=== PATIENT | female | born 2000 | race Caucasian/White ===

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

== ENCOUNTER → 2021-05-07 14:11 | Outpatient (BNVA) | payer MEDICAID, SELFPAY | PROVIDERS: Family Provider Nurse Practitioner; PCP Nurse Practitioner; Visit Provider Registered Nurse Neonatal Intensive Care | DX: J02.9 Acute pharyngitis, unspecified (principal); J40 Bronchitis, not specified as acute or chronic | CPT/HCPCS: 87880 ==

== ENCOUNTER → 2021-12-14 11:53 | Outpatient (BNVA) | payer MEDICAID, SELFPAY | PROVIDERS: Family Provider Nurse Practitioner; PCP Nurse Practitioner | DX: J02.9 Acute pharyngitis, unspecified (principal); R06.2 Wheezing; J01.90 Acute sinusitis, unspecified | CPT/HCPCS: 87071; 87880 ==

== ENCOUNTER → 2022-02-06 17:29 | Outpatient (BNVA) | payer MEDICAID, SELFPAY | PROVIDERS: Family Provider Nurse Practitioner; PCP Nurse Practitioner; Visit Provider Registered Nurse Neonatal Intensive Care | DX: Z32.00 Encounter for pregnancy test, result unknown (principal); H66.001 Acute suppurative otitis media without spontaneous rupture of ear drum, right ear | CPT/HCPCS: 81025 ==

== ENCOUNTER 2022-04-10 13:35 | Outpatient (CLI) | payer MEDICAID, SELFPAY ==
--- NOTE | 2022-04-10 14:30 | US_ITS ---
WS: [id number] ULTRASOUND BILATERAL BREAST HISTORY: Right-sided breast lumps. Mass the dynamic. COMPARISON: None available. TECHNIQUE: 2-D and Doppler. Ultrasound is directed all 4 quadrants of each breast. Also ultrasound directed to the palpable areas in the RIGHT breast near 6:00. There are no masses or soft tissue abnormality identified. No solid m ass or increased vascularity. No cysts. US/US breast BI limited* [id number] IMPRESSION: BI-RADS: 1-Negative FOLLOW-UP: See Report No ultrasound abnormality noted within either breast.
== END 2022-04-10 13:36 | disposition home or self-care (01) ==
LOC: RAD 13:35
PROVIDERS: PCP Nurse Practitioner; Visit Provider Nurse Practitioner
DX: N64.4 Mastodynia (principal)
CPT/HCPCS: 76642

== ENCOUNTER → 2023-08-19 15:16 | Outpatient (BNVA) | payer MEDICAID, SELFPAY | PROVIDERS: PCP Nurse Practitioner; Visit Provider Nurse Practitioner Women's Health | DX: Z32.00 Encounter for pregnancy test, result unknown (principal) | CPT/HCPCS: 81025 ==

== ENCOUNTER → 2023-09-08 12:23 | Outpatient (BNVA) | payer MEDICAID, SELFPAY | PROVIDERS: PCP Nurse Practitioner; Visit Provider Obstetrics & Gynecology | DX: Z34.91 Encounter for supervision of normal pregnancy, unspecified, first trimester (principal); Z3A.01 Less than 8 weeks gestation of pregnancy | CPT/HCPCS: 76801 ==

== ENCOUNTER → 2023-09-17 13:46 | Outpatient (BNVA) | payer MEDICAID, SELFPAY | PROVIDERS: PCP Nurse Practitioner; Visit Provider Nurse Practitioner Women's Health | DX: Z34.90 Encounter for supervision of normal pregnancy, unspecified, unspecified trimester (principal); Z3A.00 Weeks of gestation of pregnancy not specified | CPT/HCPCS: 80307; 81000; 84439; 84443; 84481; 85025; 86592; 86762; 86803; 86850; 86900; 87086; 87340; 87806 ==

== ENCOUNTER → 2023-09-22 09:50 | Outpatient (BNVA) | payer MEDICAID, SELFPAY | PROVIDERS: PCP Nurse Practitioner; Visit Provider Obstetrics & Gynecology | DX: Z34.01 Encounter for supervision of normal first pregnancy, first trimester (principal) | CPT/HCPCS: 81000 ==

== ENCOUNTER → 2023-10-06 13:30 | Outpatient (BNVA) | payer MEDICAID, SELFPAY | PROVIDERS: PCP Nurse Practitioner; Visit Provider Obstetrics & Gynecology | DX: Z34.01 Encounter for supervision of normal first pregnancy, first trimester (principal) | CPT/HCPCS: 81000; 88175 ==

== ENCOUNTER → 2023-11-08 08:02 | Outpatient (BNVA) | payer MEDICAID, SELFPAY | PROVIDERS: PCP Nurse Practitioner; Visit Provider Nurse Practitioner Women's Health | DX: Z34.01 Encounter for supervision of normal first pregnancy, first trimester (principal); Z3A.00 Weeks of gestation of pregnancy not specified | CPT/HCPCS: 81000; 82105 ==

== ENCOUNTER → 2023-12-07 09:08 | Outpatient (BNVA) | payer MEDICAID, SELFPAY | PROVIDERS: PCP Nurse Practitioner; Visit Provider Obstetrics & Gynecology | DX: Z34.92 Encounter for supervision of normal pregnancy, unspecified, second trimester (principal); Z3A.21 21 weeks gestation of pregnancy | CPT/HCPCS: 76805 ==

== ENCOUNTER → 2023-12-14 11:00 | Outpatient (BNVA) | payer MEDICAID, SELFPAY | PROVIDERS: PCP Nurse Practitioner; Visit Provider Obstetrics & Gynecology | DX: Z34.01 Encounter for supervision of normal first pregnancy, first trimester (principal); Z3A.00 Weeks of gestation of pregnancy not specified | CPT/HCPCS: 81000 ==

== ENCOUNTER → 2024-01-03 10:40 | Outpatient (BNVA) | payer MEDICAID, SELFPAY | PROVIDERS: PCP Nurse Practitioner; Visit Provider Obstetrics & Gynecology | DX: Z34.01 Encounter for supervision of normal first pregnancy, first trimester (principal); Z3A.00 Weeks of gestation of pregnancy not specified | CPT/HCPCS: 76816; 81000 ==

== ENCOUNTER → 2024-01-12 10:46 | Outpatient (BNVA) | payer MEDICAID, SELFPAY | PROVIDERS: PCP Nurse Practitioner; Visit Provider Nurse Practitioner Family | DX: J02.9 Acute pharyngitis, unspecified (principal); J06.9 Acute upper respiratory infection, unspecified | CPT/HCPCS: 87880 ==

== ENCOUNTER → 2024-01-31 11:00 | Outpatient (BNVA) | payer MEDICAID, SELFPAY | PROVIDERS: PCP Nurse Practitioner; Visit Provider Obstetrics & Gynecology | DX: Z34.01 Encounter for supervision of normal first pregnancy, first trimester (principal); Z3A.00 Weeks of gestation of pregnancy not specified | CPT/HCPCS: 81000; 82950 ==

== ENCOUNTER → 2024-02-14 07:37 | Outpatient (BNVA) | payer MEDICAID, SELFPAY | PROVIDERS: PCP Nurse Practitioner; Visit Provider Obstetrics & Gynecology | DX: Z34.01 Encounter for supervision of normal first pregnancy, first trimester (principal) | CPT/HCPCS: 81000 ==

== ENCOUNTER → 2024-02-24 12:20 | Outpatient (BNVA) | payer MEDICAID, SELFPAY | PROVIDERS: PCP Nurse Practitioner; Visit Provider Obstetrics & Gynecology | DX: Z34.93 Encounter for supervision of normal pregnancy, unspecified, third trimester (principal); Z3A.33 33 weeks gestation of pregnancy | CPT/HCPCS: 76816 ==

== ENCOUNTER → 2024-02-28 07:59 | Outpatient (BNVA) | payer MEDICAID, SELFPAY | PROVIDERS: PCP Nurse Practitioner; Visit Provider Obstetrics & Gynecology | DX: Z34.01 Encounter for supervision of normal first pregnancy, first trimester (principal); Z3A.00 Weeks of gestation of pregnancy not specified | CPT/HCPCS: 81000 ==

== ENCOUNTER → 2024-03-09 08:57 | Outpatient (BNVA) | payer MEDICAID, SELFPAY | PROVIDERS: PCP Nurse Practitioner; Visit Provider Nurse Practitioner Women's Health | DX: Z34.93 Encounter for supervision of normal pregnancy, unspecified, third trimester (principal); Z3A.35 35 weeks gestation of pregnancy | CPT/HCPCS: 85025 ==

== ENCOUNTER → 2024-03-21 13:09 | Outpatient (BNVA) | payer MEDICAID, SELFPAY | PROVIDERS: PCP Nurse Practitioner; Visit Provider Nurse Practitioner Women's Health | DX: Z34.01 Encounter for supervision of normal first pregnancy, first trimester (principal) | CPT/HCPCS: 76816; 81000; 87081 ==

== ENCOUNTER → 2024-03-29 08:01 | Outpatient (BNVA) | payer MEDICAID, SELFPAY | PROVIDERS: PCP Nurse Practitioner; Visit Provider Obstetrics & Gynecology | DX: Z34.01 Encounter for supervision of normal first pregnancy, first trimester (principal); Z3A.00 Weeks of gestation of pregnancy not specified | CPT/HCPCS: 81000 ==

== ENCOUNTER → 2024-04-12 08:20 | Outpatient (BNVA) | payer MEDICAID, SELFPAY | PROVIDERS: PCP Nurse Practitioner; Visit Provider Obstetrics & Gynecology | DX: Z34.90 Encounter for supervision of normal pregnancy, unspecified, unspecified trimester (principal); Z3A.00 Weeks of gestation of pregnancy not specified | CPT/HCPCS: 81000 ==

== ENCOUNTER → 2024-04-19 08:16 | Outpatient (BNVA) | payer MEDICAID, SELFPAY | PROVIDERS: PCP Nurse Practitioner; Visit Provider Obstetrics & Gynecology | DX: Z34.01 Encounter for supervision of normal first pregnancy, first trimester (principal) | CPT/HCPCS: 81000 ==

== ENCOUNTER 2024-04-25 21:12 | Inpatient (IN) | payer MEDICAID, SELFPAY ==
[2024-04-25] VITALS (31 sets, daily range): BP systolic 101–136; BP diastolic 61–87; PULSE 42–114; RESP 15–16; TEMP 36.5–36.7; O2SAT 95–100; BMI 26.9
[2024-04-25 16:11] LABS: Basophils # 0.1 10^3/uL (0.0-0.1); Basophils % 0.5 %; Eosinophils % 0.1 %; Hematocrit 32.7 % (36-47); Lymphocytes # 2.1 10^3/uL (0.8-4.8); Lymphocytes % 19.4 %; Mean Corpuscular HGB Conc 34.9 g/dL (30-55); Mean Corpuscular Volume 88.9 fl (85-98); Mean Platelet Volume 10.5 fL (7.4-10.4); Monocytes # 0.6 10^3/uL (0.2-0.9); Monocytes % 5.9 %; Neutrophils # 7.84 10^3/uL (1.8-7.7); Neutrophils % 73.2 %; Nucleated Red Blood Cells % 0 %; Platelet Count 281 10^3/cmm (157-399); Red Blood Count 3.68 10^6/uL (3.85-5.65); Red Cell Distribution Width 12.6 % (12.1-15.1); White Blood Count 10.71 10^3/uL (3.29-11.43)
[2024-04-25] MEDS: dextrose 5%-lactated ringers 1,000 ML 125 ML IV (16:22)
[2024-04-25] MEDS: oxytocin 30 UNIT/500 ML BAG IV (17:16)
--- NOTE | 2024-04-25 19:00 | P.ANESASSM_ITS ---
Pre-Anesthetic Assessment Height/Weight: Height 5 ft 3 in Weight 152 lb Temp Pulse Resp BP O2 Del Method 98.0 F 114 H 15 132/82 Room Air 04/25/24 15:52 04/25/24 20:53 04/25/24 15:52 04/25/24 20:53 04/25/24 15:20 Social Tobacco and No alcohol Exam alert, oriented x 3, clear to auscultation bilaterally and regular rate & rhythm Airway Submandibular: within normal limits Cervical ROM: within normal limits Mallampati: Class II Dentition: full Anesthetic Plan ASA status: 2 Anesthesia: Regional (specify below) Other: Patient presents for today. Failure to progress No prior issues with anesthesia METs greater than 4 Current smoker Patient states she has an allergy to codeine, requesting no morphine Denies any issues with Patient was told that baby appears to have an irregular heart rhythm on Doppler today, states all previous scans were normal Labs reviewed today platelets 281 Plan for spinal anesthetic Medications/Allergies Home Medications Medication Instructions Recorded Confirmed Last Taken Type PNV 153-FA 400 mcg-om3 35 mg-dha tab PO 09/17/23 04/19/24 Unknown History 25 mg-epa 5 mg-fish oil chew tablet ( Gummies) metoclopramide HCl 5 mg tablet 5 mg PO DAILY #30 tabs 09/21/23 04/19/24 Unknown Rx (Reglan) irnskcfgiy-chyjnfaorezou-dcqfyhlv 1 cap PO Q8H PRN pain #20 caps 10/28/23 04/19/24 Unknown Rx 50 mg-300 mg-40 mg capsule (Fioricet) bupropion HCl 150 mg tablet,12 hr 150 mg PO DAILY #30 tabs 03/29/24 04/19/24 Unknown Rx sustained-release (Wellbutrin SR) Allergies Allergy/AdvReac Type Severity Reaction Status Date / Time amoxicillin Allergy ALGY-Rash Verified 04/19/24 09:24 codeine Allergy ADR-Abdominal Verified 04/19/24 09:24 Pain Current Medications Generic Name Dose Route Start Last Admin Trade Name Freq PRN Reason Stop Dose Admin Dextrose/Lactated Ringer's 1,000 mls @ 125 mls/hr 04/25/24 16:00 04/25/24 16:22 Dextrose 5%-Lactated Ringers IV 125 mls/hr .Q8H YVONNE Administration Oxytocin 30 unit in 500 mls @ 1 mls/hr 04/25/24 16:00 04/25/24 18:40 Pitocin IV 0 milliunit/min .Q24H YVONNE 0 mls/hr Titration Protocol 1 MILLIUNIT/MIN PFSH Anesthesia Medical History Allergic rhinitis Anxiety Surgical History History of myringoplasty History of adenoidectomy History of tonsillectomy Family History Mother Depression Grandmother Hypertension Cancer Social History Smoking and tobacco/nicotine status: never used tobacco/nicotine Female Reproductive History : 1 Data Anesthesia 04/25/24 15:15 Short CBC 04/25/24 Range/Units 15:15 WBC 10.71 (3.29-11.43) 10^3/uL Hgb 11.40 (11.27-16.99) g/dL Hct 32.7 L (36-47) % MCV 88.9 (85-98) fl Plt Count 281 (157-399) 10^3/cmm Neut % (Auto) 73.2 % Neut # (Auto) 7.84 H (1.8-7.7) 10^3/uL Blood Bank 04/25/24 15:15 Blood Type A Negative Rho(D) Type Rh negative Cardiac Studies: 2 No Data to Display
[2024-04-25] MEDS: lactated ringers 1,000 ML 999 ML IV (19:02)
[2024-04-25] MEDS: citric acid-sodium citrate 30 mL UDC PO ×2 (19:03→20:44)
[2024-04-25] MEDS: metoclopramide 5 mg/mL SDV 2 mL 10 MG IVP (19:03)
[2024-04-25] MEDS: famotidine 20 mg/2 mL INJ IVP ×2 (19:03→20:45)
[2024-04-25] MEDS: clindamycin 900 MG/50 ML PREMIX 100 MG IV (20:44)
[2024-04-25] MEDS: metoclopramide 5 mg/mL SDV 2 mL 10 MG IV (20:45)
--- NOTE | 2024-04-25 23:05 | PM.OBGYHP ---
Providers/Chief Complaint Admitting Physician: Kg Calvillo MD Primary APPLICATION COORDINATOR: Kg Calvillo MD Primary Care Provider: ANTONY Rosales Chief Complaint: IOL HPI APPLICATION COORDINATOR History of Present Illness Cruzito Mora is a 24 year old female G1 EDC April 20, 2024, c/w 8-week sono At 40 w 5 d No complications No c/o + movements Admitted for induction of labor Present Details : 1 Para: 0 Labs Rubella: Immune RPR: Negative GBS: Negative Medications/Allergies Home Medications Medication Instructions Recorded Confirmed Last Taken Type PNV 153-FA 400 mcg-om3 35 mg-dha tab PO 09/17/23 04/19/24 Unknown History 25 mg-epa 5 mg-fish oil chew tablet ( Gummies) metoclopramide HCl 5 mg tablet 5 mg PO DAILY #30 tabs 09/21/23 04/19/24 Unknown Rx (Reglan) qhrglegivd-sawajwyncieer-ukeulegf 1 cap PO Q8H PRN pain #20 caps 10/28/23 04/19/24 Unknown Rx 50 mg-300 mg-40 mg capsule (Fioricet) bupropion HCl 150 mg tablet,12 hr 150 mg PO DAILY #30 tabs 03/29/24 04/19/24 Unknown Rx sustained-release (Wellbutrin SR) Allergies Allergy/AdvReac Type Severity Reaction Status Date / Time amoxicillin Allergy ALGY-Rash Verified 04/19/24 09:24 codeine Allergy ADR-Abdominal Verified 04/19/24 09:24 Pain PFSH APPLICATION COORDINATOR PFSH: Medical History Allergic rhinitis Anxiety Surgical History History of myringoplasty History of adenoidectomy History of tonsillectomy Family History Mother Depression Grandmother Hypertension Cancer Social History Smoking and tobacco/nicotine status: never used tobacco/nicotine History History History 1 Term 0 Miscarriages/Ectopic Living Children 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 VS normal General: comfortable, awake, alert Lungs: clear Cor: RRR FH 38 cm, cephalic Cervix 1 / 75% / -3 / posterior Ext: no edema External monitor: heart tones with audible arrhythmia, rate varying from 70 to 130 Unable to obtain tracing Data 04/25/24 15:15 Results Labs OB ([facility]): Obstetrics US 03/21/24 Blood Type A Negative 04/25/24 Antibody Screen Positive 04/25/24 Hct 32.7 % (36-47) L 04/25/24 Hgb 11.40 g/dL (11.27-16.99) 04/25/24 Rho(D) Type Rh negative 04/25/24 Plt Count 281 10^3/cmm (157-399) 04/25/24 Hep Bs Antigen Non-reactive (Nonreactive) 09/17/23 Hepatitis C Antibody Non-reactive (Nonreactive) 09/17/23 Rubella IgG Antibody 54.8 IU/mL (0.0-10.0) H 09/17/23 RPR Nonreactive (Nonreactive) 09/17/23 HIV 1&2 Ab & HIV 1 Ag Non-reactive (Non-Reactiv) 09/17/23 TSH 0.73 uIU/mL (0.27-4.20) 09/17/23 Free T4 1.10 ng/dL (0.82-1.77) 09/17/23 C.trachomatis RNA (TMA) Pending 04/25/24 N.gonorrhoeae RNA (TMA) Pending 04/25/24 Chlamydia/GC Comment Pending 04/25/24 Glucose 1 Hr 50 gm 109 mg/dL (85-140) 01/31/24 HCG, Qual Positive (Negative) H 08/19/23 Urine Opiates Screen Negative ng/mL (Negative) 04/25/24 Ur Barbiturates Screen Negative ng/mL (Negative) 04/25/24 Ur Phencyclidine Scrn Negative ng/mL (Negative) 04/25/24 Ur Amphetamines Screen Negative ng/mL (Negative) 04/25/24 U Benzodiazepines Scrn Negative ng/mL (Negative) 04/25/24 Urine Cocaine Screen Negative ng/mL (Negative) 04/25/24 U Marijuana (THC) Screen Positive ng/mL (Negative) H 04/25/24 Micro Urine Specimen 09/17/23 Pap Smear Interpret See note 10/06/23 A&P Assessment and plan (1) Encounter for induction of labor: 40 w 5 d Admitted for induction of labor Unable to obtain heart tracing due to arrhythmia Cervix at 1 cm / -3 / posterior, unable to artificially rupture membranes to place internal monitors due to inability to assure well-being during Pitocin induction, will proceed with for delivery procedure and risks explained to patient risks include, but not limited to, infection, bleeding, injury to internal organs, anesthesia, blood transfusions patient understands and wants to proceed Rh negative Attestations Medical Necessity Statement*: patient at 40 w 5 d, admitted for induction of labor Coding Level of Care Code Acute Code for Chg Fwd Diagnoses Encounter for induction of labor Z34.90 Time Spent (min) 120
--- NOTE | 2024-04-25 23:10 | P.OP_ITS ---
Operative Report Date of procedure: April 25, 2024 Pre-op diagnosis: 40 w 5 d induction of labor cervix at 1 cm heart tracing with arrhythmia Post-op diagnosis: same Post-op findings: clear amniotic fluid vigorous fetus normal uterus, tubes, and ovaries Procedure done: primary low-transverse Specimens removed/disposition: placenta and cord, discarded cord gases and blood, sent to lab Surgeon: Kg Calvillo MD Anesthesia: Spinal Estimated blood loss (mL): 400 Complications: none Findings: clear amniotic fluid vigorous fetus normal uterus, tubes, and ovaries Condition: stable Disposition: floor Brief History: 24 y.o. at 40 w 5 d admitted for induction of labor Cx at 1 cm heart tracing with arrhythmia Procedure: The patient was taken to the operating room and placed supine in the left lateral tilt position. Epidural anesthesia and a zuluaga catheter were already in place. Time-out verification was carried out. The abdomen was prepped and draped in the usual sterile fashion. A Pfannenstiel incision was made and carried down through skin and subcutaneous tissue and fascia. The fascial incision was extended laterally with Gonzalez scissors. The fascia was from the underlying rectus muscles. The rectus muscles were split in the midline. The peritoneum was entered bluntly avoiding underlying organs. A bladder flap was created. An Cruzito-O retractor was placed. A low-transverse uterine incision was made and extended laterally and bluntly avoiding the uterine vessels. Clear amniotic fluid was encountered. The baby was delivered in cephalic presentation atraumatically. The baby was suctioned, the cord was clamped and cut and the baby was handed to pediatric staff. A segment of cord was obtained for cord gas, cord blood was obtained. The placenta was manually removed intact. The uterine cavity was bluntly curetted with wet laps. The uterine incision was then closed with a continuous in terlocking stitch of O-chromic. Adequate hemostasis was seen. Inspection of the uterine incision again showed good hemostasis. The fascia was then closed with a continuous stitch of O-Vicryl. Additional interrupted stitches of O-Vicryl were used for fascial closure. The subcutaneous tissue was irrigated and inspected for hemostasis. The skin was then closed with Insorb kodi. Postoperative condition: stable EBL: 400 cc Complications: none Sponge and instruments counts correct x two
[2024-04-25 23:48] LABS: Amphetamines Screen Urine Negative (Negative); Barbiturates Screen Urine Negative (Negative); Benzodiazepines Screen Urine Negative (Negative); Cocaine Screen Urine Negative (Negative); Opiate Screen Urine Negative (Negative); PCP Screen Urine Negative (Negative); THC Screen Urine Positive (Negative)
[2024-04-26] VITALS (19 sets, daily range): BP systolic 101–145; BP diastolic 53–88; PULSE 37–85; RESP 16; TEMP 36.9; O2SAT 98
--- NOTE | 2024-04-26 00:24 | ANE.PACU2 ---
Inpatient post-anesthesia follow up: Airway intact: Yes Vital signs: Temperature 98.0 F Pulse Rate 74 Respiratory Rate 15 Blood Pressure 132/70 Pulse Oximetry 96 Oxygen Delivery Me thod Room Air Oxygen Flow Rate Fraction of Inspir ed Oxygen Hydration adequate: Yes Nausea and vomiting: No Pain level: 1 Mental status: Baseline
[2024-04-26] MEDS: ketorolac 30 mg/mL INJ IVP ×3 (00:48→14:26)
[2024-04-26] MEDS: dextrose 5%-lactated ringers 1,000 ML 125 ML IV (01:07)
[2024-04-26] MEDS: HYDROcodone-acetaminophen 5-325 mg Tablet PO ×4 (04:31→22:04)
[2024-04-26 10:27] LABS: Hematocrit 30.3 % (36-47); Mean Corpuscular HGB Conc 34.7 g/dL (30-55); Mean Corpuscular Hemoglobin 30.3 pg (27-33); Mean Corpuscular Volume 87.3 fl (85-98); Mean Platelet Volume 9.8 fL (7.4-10.4); Platelet Count 219 10^3/cmm (157-399); Red Blood Count 3.47 10^6/uL (3.85-5.65); Red Cell Distribution Width 12.5 % (12.1-15.1); White Blood Count 11.13 10^3/uL (3.29-11.43)
[2024-04-26] MEDS: PRENATAL VIT NO.130/IRON/FOLIC 1 EACH TABLET PO (11:40)
--- NOTE | 2024-04-26 14:05 | P.PN_ITS ---
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 Subjective 2 Subjective: Interval history: c/o mild incisional pain also c/o shoulder and gas pains no chest pain, shortness of breath, palpitations no bleeding, nausea, vomiting tolerating PO well caring for without any difficulties Labor: Amniotic Membrane Status: Intact Monitor Mode: External C ontraction Pattern: Regular Vitals/I&O/Wt Last Vital Signs Temp 98.7 F 04/27/24 20:45 Pulse 80 04/27/24 20:45 Resp 15 04/27/24 20:45 BP 122/79 04/27/24 20:45 Pulse Ox 96 04/27/24 20:45 O2 Del Method Room Air 04/27/24 04:23 Physical Exam 2 Narrative: afebrile, VS normal comfortable, awake, alert Lungs: clear Cor: RRR Abd: soft, nondistended, nontender fundus firm wound clean and dry Ext: normal postop Hgb 8--24 a.m. 10.5 Urinary Catheter Management: Zuluaga Latex: Cath Placed During This Visit: yes, but has since been removed by the nurse Reason for Continuing Indwelling Catheter: Decision to DC Catheter Urinary Catheter Date of Insertion: 04/25/24 Urinary Catheter Time of Insertion: 21:40 Date Urinary Catheter Removed: 04/26/24 Time Urinary Catheter Discontinued: 09:00 Data 04/26/24 10:15 A&P Assessment and plan (1) S/P : POD #1 primary LTCS doing well continue postop care pain medications for shoulder and incisional pain remove zuluaga ambulate Attestations 2 Medical Necessity Statement*: patient s/p Coding Level of Care Code Acute Code for Chg Fwd Diagnoses S/P Z98.891 Time Spent (min) 30
[2024-04-26] MEDS: simethicone 80 mg Chew PO ×2 (14:24→16:32)
[2024-04-26] MEDS: ibuprofen 800 mg tablet PO (22:03)
[2024-04-26] MEDS: docusate sodium 100 mg Capsule PO (22:04)
[2024-04-27 04:23] VITALS: BP 111/73; PULSE 74; RESP 16; TEMP 36.7
[2024-04-27] MEDS: HYDROcodone-acetaminophen 5-325 mg Tablet PO (07:03)
[2024-04-27] MEDS: PRENATAL VIT NO.130/IRON/FOLIC 1 EACH TABLET PO (09:30)
[2024-04-27] MEDS: ferrous sulfate EC 325 mg Tablet PO (09:30)
[2024-04-27] MEDS: ibuprofen 800 mg tablet PO ×2 (09:30→15:19)
[2024-04-27] MEDS: docusate sodium 100 mg Capsule PO (09:30)
[2024-04-27 09:31] VITALS: BP 122/77; PULSE 83; RESP 17; TEMP 36.5
--- NOTE | 2024-04-27 15:10 | P.PN_ITS ---
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 2 Subjective: Interval history: no c/o no further shoulder pain eating, voiding, ambulating well mild incisional pain, relieved with pain medication no bleeding patient wants to go home without any difficulties Labor: Amniotic Membrane Status: Intact Monitor Mode: External C ontraction Pattern: Regular Vitals/I&O/Wt Last Vital Signs Temp 98.7 F 04/27/24 20:45 Pulse 80 04/27/24 20:45 Resp 15 04/27/24 20:45 BP 122/79 04/27/24 20:45 Pulse Ox 96 04/27/24 20:45 O2 Del Method Room Air 04/27/24 04:23 Physical Exam 2 Narrative: comfortable afebrile, VS normal Abd: soft, nontender wound clean and dry Ext: normal Urinary Catheter Management: Coates Latex: Cath Placed During This Visit: yes, but has since been removed by the nurse Reason for Continuing Indwelling Catheter: Decision to DC Catheter Urinary Catheter Date of Insertion: 04/25/24 Urinary Catheter Time of Insertion: 21:40 Date Urinary Catheter Removed: 04/26/24 Time Urinary Catheter Discontinued: 09:00 Data 04/26/24 10:15 A&P Assessment and plan (1) S/P : POD #2 primary LTCS doing well discharge home today instructions and precautions given call/return if fever, chills, nausea, vomiting, headaches, abdominal pain, bleeding, inability to void, swelling, leg pain; feelings of depression or mood changes; wound redness, swelling, or discharge; chest pain, shortness of breath f/u in 1 week or PRN Attestations 2 Medical Necessity Statement*: patient s/p , plan to discharge to home today Coding Level of Care Code Acute Code for Chg Fwd Diagnoses S/P Z98.891 Time Spent (min) 20
--- NOTE | 2024-04-27 15:15 | PM.OBGYDC ---
Discharge Providers VEGETABLES COOK Date of Admission: 04/25/24 21:12 Date of Discharge: 04/27/24 Attending Provider at Admission: Kg Calvillo MD Attending Provider at Discharge: Kg Calvillo MD Consults: none Primary VEGETABLES COOK: Kg Calvillo MD Primary Care Provider: ANTONY Rosales Diagnoses at Discharge Discharge Diagnosis (1) S/P : Details from hospital stay: 24 y.o. G1 at 40 w 5 d no complications admitted for induction of labor cervix was 1 cm / -3 / posterior monitoring showed arrhythmia, unable to assure well-being it was decided to proceed with for delivery primary low-transverse was done without any complications patient did well and was discharged to home on the second postoperative day Status: Acute Reason for Visit Reason for Visit: IOL Brief History: 24 y.o. G1 at 40 w 5 d no complications admitted for induction of labor Hospital Course Hospital Course 24 y.o. G1 at 40 w 5 d no complications admitted for induction of labor cervix was 1 cm / -3 / posterior monitoring showed arrhythmia, unable to assure well-being it was decided to proceed with for delivery primary low-transverse was done without any complications patient did well and was discharged to home on the second postoperative day Information Peripartum Data: Infant Delivery Method: complications: none Physical Exam Narrative: afebrile, VS normal comfortable, awake, alert Lungs: clear Cor: RRR Abd: soft, nondistended, nontender fundus firm wound clean and dry Ext: normal Urinary Catheter Management: Coates Latex: Cath Placed During This Visit: yes, but has since been removed by the nurse Reason for Continuing Indwelling Catheter: Decision to DC Catheter Urinary Catheter Date of Insertion: 04/25/24 Urinary Catheter Time of Insertion: 21:40 Date Urinary Catheter Removed: 04/26/24 Time Urinary Catheter Discontinued: 09:00 History History History 1 Term 0 Miscarriages/Ectopic Living Children Discharge Data Studies Completed and Pending Laboratory Results WBC 11.13 10^3/uL (3.29-11.43) 04/26/24 10:15 RBC 3.47 10^6/uL (3.85-5.65) L 04/26/24 10:15 Hgb 10.50 g/dL (11.27-16.99) L 04/26/24 10:15 Hct 30.3 % (36-47) L 04/26/24 10:15 MCV 87.3 fl (85-98) 04/26/24 10:15 MCH 30.3 pg (27-33) 04/26/24 10:15 MCHC 34.7 g/dL (30-55) 04/26/24 10:15 RDW 12.5 % (12.1-15.1) 04/26/24 10:15 Plt Count 219 10^3/cmm (157-399) 04/26/24 10:15 MPV 9.8 fL (7.4-10.4) 04/26/24 10:15 Neut % (Auto) 73.2 % 04/25/24 15:15 Lymph % (Auto) 19.4 % 04/25/24 15:15 [place] % (Auto) 5.9 % 04/25/24 15:15 Eos % (Auto) 0.1 % 04/25/24 15:15 Baso % (Auto) 0.5 % 04/25/24 15:15 Neut # (Auto) 7.84 10^3/uL (1.8-7.7) H 04/25/24 15:15 Lymph # (Auto) 2.1 10^3/uL (0.8-4.8) 04/25/24 15:15 [place] # (Auto) 0.6 10^3/uL (0.2-0.9) 04/25/24 15:15 Eos # (Auto) 0.0 10^3/uL (0.0-0.8) 04/25/24 15:15 Baso # (Auto) 0.1 10^3/uL (0.0-0.1) 04/25/24 15:15 Nucleated RBC % (auto) 0 % 04/25/24 15:15 Nucleated RBCs # 0.0 /100WBC 04/25/24 15:15 Urine Opiates Screen Negative ng/mL (Negative) 04/25/24 16:30 Ur Barbiturates Screen Negative ng/mL (Negative) 04/25/24 16:30 Ur Phencyclidine Scrn Negative ng/mL (Negative) 04/25/24 16:30 Ur Amphetamines Screen Negative ng/mL (Negative) 04/25/24 16:30 U Benzodiazepines Scrn Negative ng/mL (Negative) 04/25/24 16:30 Urine Cocaine Screen Negative ng/mL (Negative) 04/25/24 16:30 U Marijuana (THC) Screen Positive ng/mL (Negative) H 04/25/24 16:30 C.trachomatis RNA (TMA) Not detected (NOT DETECTED) 04/25/24 16:30 Chlamydia/GC Comment See note 04/25/24 16:30 N.gonorrhoeae RNA (TMA) Not detected (NOT DETECTED) 04/25/24 16:30 Blood Type A Negative 04/25/24 15:15 Rho(D) Type Rh negative 04/25/24 15:15 Antibody Screen Positive 04/25/24 15:15 Antibody Identification Anti-D 04/25/24 15:15 Screen Negative (Negative) 04/26/24 10:15 Procedures Performed primary low-transverse Vitals Last Vital Signs Temp 98.7 F 04/27/24 20:45 Pulse 80 04/27/24 20:45 Resp 15 04/27/24 20:45 BP 122/79 04/27/24 20:45 Pulse Ox 96 04/27/24 20:45 O2 Del Method Room Air 04/27/24 04:23 Results Labs OB ([facility]): Obstetrics US 03/21/24 Blood Type A Negative 04/25/24 Antibody Screen Positive 04/25/24 Hct 30.3 % (36-47) L 04/26/24 Hgb 10.50 g/dL (11.27-16.99) L 04/26/24 Rho(D) Type Rh negative 04/25/24 Plt Count 219 10^3/cmm (157-399) 04/26/24 Hep Bs Antigen Non-reactive (Nonreactive) 09/17/23 Hepatitis C Antibody Non-reactive (Nonreactive) 09/17/23 Rubella IgG Antibody 54.8 IU/mL (0.0-10.0) H 09/17/23 RPR Nonreactive (Nonreactive) 09/17/23 HIV 1&2 Ab & HIV 1 Ag Non-reactive (Non-Reactiv) 09/17/23 TSH 0.73 uIU/mL (0.27-4.20) 09/17/23 Free T4 1.10 ng/dL (0.82-1.77) 09/17/23 C.trachomatis RNA (TMA) Not detected (NOT DETECTED) 04/25/24 N.gonorrhoeae RNA (TMA) Not detected (NOT DETECTED) 04/25/24 Chlamydia/GC Comment See note 04/25/24 Glucose 1 Hr 50 gm 109 mg/dL (85-140) 01/31/24 HCG, Qual Positive (Negative) H 08/19/23 Urine Opiates Screen Negative ng/mL (Negative) 04/25/24 Ur Barbiturates Screen Negative ng/mL (Negative) 04/25/24 Ur Phencyclidine Scrn Negative ng/mL (Negative) 04/25/24 Ur Amphetamines Screen Negative ng/mL (Negative) 04/25/24 U Benzodiazepines Scrn Negative ng/mL (Negative) 04/25/24 Urine Cocaine Screen Negative ng/mL (Negative) 04/25/24 U Marijuana (THC) Screen Positive ng/mL (Negative) H 04/25/24 Micro Urine Specimen 09/17/23 Pap Smear Interpret See note 10/06/23 Discharge Plan Discharge Patient Disposition: Home Condition: Stable Prescriptions: New Percocet 5-325 mg tablet 1 tab PO BID PRN (Reason: pain) Qty: 30 0RF Continued Gummies 400 mcg-35 mg- 25 mg-5 mg tablet,chewable PO metoclopramide HCl [Reglan] 5 mg tablet 5 mg PO DAILY Qty: 30 1RF bupropion HCl [Wellbutrin SR] 150 mg tablet sustained-release 12 hr 150 mg PO DAILY Qty: 30 2RF zypxuykkwj-vquhynegaonwt-zfhx [Fioricet] 50-300-40 mg capsule 1 cap PO Q8H PRN (Reason: pain) Qty: 20 0RF Discharge Orders: Discharge Order (Routine); Ordered 04/27/24 Ordered By: Kg Calvillo Referrals: Kg Calvillo MD [Physician] - 05/03/24 1:15 pm ( ) Discharge Diet: Usual diet Discharge Activity: Increase activity as tolerated Patient Instructions: Depression (DC), Opioid Safety (DC), Preeclampsia and Eclampsia After Delivery (GEN), Hemorrhage (DC), OB [facility], OB Discharge Report, OB Food/Drug Interaction Guide, Opioid Safety, OB Home Care, Abnormal Bleeding Discharge Attestations VEGETABLES COOK Time Spent in Discharge Care*: less than 30 min Coding Level of Care Code Acute Code for Chg Fwd Diagnoses S/P Z98.891 Time Spent (min) 20
[2024-04-27 15:18] VITALS: BP 111/72; PULSE 79; RESP 16; TEMP 36.8
[2024-04-27 15:44] LABS: Chlamydia Trachomatis RNA TMA NOT DETECTED (NOT DETECTED); Neisseria Gonorrhoeae RNA, TMA NOT DETECTED (NOT DETECTED)
[2024-04-27 20:45] VITALS: BP 122/79; PULSE 80; RESP 15; TEMP 37.1; O2SAT 96
== END 2024-04-27 20:50 | disposition home or self-care (01) | DRG 788 ==
LOC: OPOB 21:13 → OBGYN 21:13
PROVIDERS: Admitting Provider Obstetrics & Gynecology; PCP Nurse Practitioner; Visit Provider Obstetrics & Gynecology
PROC: 10D00Z1 Extraction of Products of Conception, Low, Open Approach (ICD-10-PCS; CPT 59514; principal; 2024-04-25 21:15)
DX: O48.0 Post-term pregnancy (principal); Z3A.40 40 weeks gestation of pregnancy; O76 Abnormality in fetal heart rate and rhythm complicating labor and delivery; O99.334 Smoking (tobacco) complicating childbirth; F17.200 Nicotine dependence, unspecified, uncomplicated; Z37.0 Single live birth
CPT/HCPCS: 36415; 36430; 59025; 59409; 80306; 80503; 85025; 85027; 85460; 86850; 86870; 86900; 87491; 87591; 90384; 98960; J0690; J1885; J2405; J2590; J2765; J3010; J3490; J7030; J7120; J7121

== ENCOUNTER → 2024-08-12 12:42 | Outpatient (BNVA) | payer MEDICAID, SELFPAY | PROVIDERS: PCP Nurse Practitioner | DX: J02.9 Acute pharyngitis, unspecified (principal) | CPT/HCPCS: 87071; 87880 ==

== ENCOUNTER → 2024-09-06 14:11 | Outpatient (BNVA) | payer MEDICAID, SELFPAY | PROVIDERS: PCP Nurse Practitioner; Visit Provider Obstetrics & Gynecology | DX: R30.0 Dysuria (principal) | CPT/HCPCS: 87086 ==